=== PATIENT | female | born 1970 | race African-American/Black ===

== ENCOUNTER 2019-03-03 08:28 | Day surgery (SDC) | payer OTHER ==
[2019-03-03 08:20] LABS: Urine Appearance CLOUDY; Urine Blood NEGATIVE (NEG); Urine Color DK YELLOW; Urine Glucose NEGATIVE (NEG); Urine Protein TRACE (NEG); Urine Specific Gravity >=1.030 (1.005-1.030)
[2019-03-03 08:24] LABS: Urine Bilirubin 1+ (NEG); Urine Microscopic Reflex ORDER UMIC
[2019-03-03 08:26] LABS: Absolute Lymphocytes (CBC) 2.2 K/uL (0.7-4.9); Basophils % 0.4 % (0-1.3); Hematocrit 41.6 % (36.0-45.0); Lymphocytes % 26.9 % (15.3-44.8); MPV 8.8 fL (7.6-11.3); RBC Red Blood Cell Count 4.66 M/uL (3.86-4.86)
[2019-03-03] MEDS ORDERED: BACITRACIN 50000 UNIT VIAL ONE (08:51)
[2019-03-03] MEDS ORDERED: GENTAMICIN SULF 80 MG/2ML INJ ONE (08:51)
[2019-03-03] MEDS ORDERED: NS 0.9% VIAL 10 ML ONE ×4 (08:51→13:01)
[2019-03-03] MEDS ORDERED: CEFAZOLIN SODIUM 1 GM/VIAL ONE (08:51)
[2019-03-03] MEDS ORDERED: Ringers Lactate 1,000 ML IV ONE ×3 (08:51→15:20)
--- NOTE | 2019-03-03 08:57 | EKG ---
Test Date: 2019-03-03 Test Time: 08:05:45 Retail Marketing Coordinator: ROSALINO MEASUREMENT RESULTS: Intervals: Rate: 79 OR: 150 QRSD: 84 QT: 380 QTc: 435 [place]: P: 46 OR: 150 QRS: 25 T: 33 INTERPRETIVE STATEMENTS: Normal sinus rhythm Cannot rule out Anterior infarct, age undetermined Abnormal ECG No previous ECG available for comparison Electronically Signed On 03-03-19 08:57:36 [employer] by Rashaad Garber
[2019-03-03] MEDS ORDERED: LIDOCAINE 1% MPF 5 ML VIAL ONE (09:05)
[2019-03-03] MEDS ORDERED: PROPOFOL 200 MG/20 ML VIAL IV ONE (09:05)
[2019-03-03] MEDS ORDERED: dexAMETHasone 10 MG/ML VIAL ONE (09:05)
[2019-03-03] MEDS ORDERED: MIDAZOLAM HCL 2 MG/2 ML INJ ONE (09:05)
[2019-03-03] MEDS ORDERED: FENTANYL CITR 250 MCG/5 ML ONE ×2 (09:05→10:36)
[2019-03-03] MEDS ORDERED: ONDANSETRON 4 MG/2 ML VIAL ONE (09:06)
[2019-03-03] MEDS ORDERED: VECURONIUM 10 MG/VIAL IV ONE ×2 (09:06→11:31)
[2019-03-03] MEDS ORDERED: CEFAZOLIN/SWI 1gm 1 GM/10 ML SYR ONE (09:14)
[2019-03-03] MEDS ORDERED: SCOPOLAMINE HYDROBROMIDE PATCH TD ONE (09:14)
--- NOTE | 2019-03-03 09:23 | RAD REPORT ---
EXAM DESCRIPTION: Giancarlo Matta (2 Views)03/03/2019 9:18 am CLINICAL HISTORY: Preop for breast surgery COMPARISON: None FINDINGS: The lungs appear clear of acute infiltrate. The heart is normal size IMPRESSION: No acute abnormalities displayed
[2019-03-03 09:41] LABS: Urine Bacteria <20 /HPF (<20); Urine RBC NONE SEEN /HPF (NONE SEEN)
[2019-03-03 09:42] LABS: Urine Culture Reflex Order NOT NEEDED
[2019-03-03] MEDS ORDERED: ETOMIDATE 20 MG/10 ML VIAL IV ONE (09:52)
[2019-03-03] MEDS: Ringers Lactate 1,000 ML IV ONE ×2 (10:51→11:09)
[2019-03-03] MEDS ORDERED: EPHEDRINE SULF 50 MG/ML VIAL ONE (13:01)
[2019-03-03] MEDS ORDERED: FENTANYL CITR 100 MCG/2 ML ONE (14:03)
[2019-03-03] MEDS ORDERED: Phenylephrine HCl 10 MG/ML 1 ML VIAL ONE (14:30)
[2019-03-03] MEDS ORDERED: Mastisol Adhesive Liq ONE (15:02)
[2019-03-03] MEDS ORDERED: MEPERIDINE HCL 25 MG/0.5 ML ONE (15:07)
[2019-03-03] MEDS: HYDROMORPHONE HCL 1 MG/ML INJ ONE ×2 (15:40→15:47)
[2019-03-03] MEDS ORDERED: PROMETHAZINE 25 MG/ML VIAL ONE (15:40)
[2019-03-03] MEDS ORDERED: CODEINE 30MG/APAP 300MG TAB ONE (18:06)
[2019-03-03 18:45] VITALS: BP 102/64; TEMP 99; O2SAT 100
--- NOTE | 2019-03-04 00:43 | OP ---
Surgeon: Juan Carlos Michelle MD [employer] Countertop Installer: Maurice. Preoperative Diagnosis: Breast descent and enlargement. Postoperative Diagnosis: Breast descent and enlargement. Procedure Performed: Breast lift with minimal reduction. Anesthesia: General. Procedure In Detail: After satisfactory induction of general anesthesia, the chest was prepped with DuraPrep and dry sterile drapes applied in the usual manner. A 45 template was used to outline the r ight and left areola. Incisions made with 15 blade and then transverse curvilinear incision was made . The intervening skin was de-epithelialized with dermabrader or EpiCut. The flap was elevated 1.4 cm thick toward the sternum, clavicle, anterior axillary line bilaterally. Then the inferior incisio n was made, the de-epithelialized tissue was formed with a cone. Prior to conization lateral excess breast tissue was resected allowing electrocautery scalpel. Conization performed with 2-0 PDS suture . Straps were elevated at 12 o'clock, 1:30 and 3 o'clock position on the right breast. The straps w ere then woven in and out of the pectoralis major muscle, back to the base of the cone, back to pecto ralis muscle, and back the base of the cone, tied themselves with 2-0 PDS. This was done for 12 o'cl ock and 1:30 straps. The 3 o'clock strap was sewn over the sternum at 3 o'clock position. Left side done in the mirror-image manner. Amount of tissue removed from the right breast was 364, it was the larger breast; amount from left breast was 250. Then the 10 SHAILA was brought out of the axilla, sewn in place with 2-0 silk. The wounds were closed with 3-0 Vicryl running subcuticular followed by 3-0 Vicryl interrupted and then 3-0 PDS running subcuticular tied in the vertical meridian breast. After this was done, left side was done in an identical manner. Patient was sat up. Site for new nipple- areolar complex was marked out. The tissue cored out, with a 45 template. Nipple was delivered and sewn in place with 4-0 PDS interrupted, followed by 4-0 PDS running subcuticular. Dressings consiste d of tincture of benzoin, Steri-Strips, 5 x 5's, fluffs and Guerrero wrap. The patient tolerated the proc edure well returned to recovery. GH/MODL Voice ID: [id number] Report ID: [id number]
== END 2019-03-03 18:45 | disposition home or self-care (01) ==
LOC: OR 08:28
PROVIDERS: ATTEND Specialist
PROC: 0H0V0JZ Alteration of Bilateral Breast with Synthetic Substitute, Open Approach (ICD-10-PCS; 2019-03-03)
PROC: 0H0V0ZZ Alteration of Bilateral Breast, Open Approach (ICD-10-PCS; principal; 2019-03-03 09:00)
DX: N62 Hypertrophy of breast (principal); N64.81 Ptosis of breast; K21.9 Gastro-esophageal reflux disease without esophagitis; F41.9 Anxiety disorder, unspecified; Z88.2 Allergy status to sulfonamides; Z88.4 Allergy status to anesthetic agent; Z88.8 Allergy status to other drugs, medicaments and biological substances; Z91.040 Latex allergy status
CPT/HCPCS: 93005; 85025; 36415; 88305; 71046; 19318; 19316; J2704; J2550; J2370; J1580; J3010 ×3; J1100; J2175; J1170; J0690 ×2; J7120 ×4; J2405; 81003; 81015; J2250